=== PATIENT | female | born 1955 | race Caucasian/White ===

== ENCOUNTER 2019-03-03 05:13 | Day surgery (SDC) | payer BC ==
[~2019-03-03] VITALS: Ht 162.6 cm; Wt 66.7 kg
[~2019-03-03 05:13] MED LIST: AMOXICILLIN 50500 MG PO; ARTIFICIAL TEAR15 M9 OPHTHALMIC; ASPIR 8181 MG PO; AZULFIDINE500 MG PO; CENTRUM SILVER1 EAC4 PO; FLAX OIL1000 MG PO; FOLIC ACID 40400 MC1 PO; FOLIC ACID0.8 MG PO; FOSAMAX 70 MG T70 MG PO; GENTEAL SEVERE10 GM OPHTHALMIC; LORATIDINE 10 M10 M1 PO; METHOTREXATE 22.5 MG PO; PRAVACHOL20 MG PO; REMICADE 1100 MG/VIA IV; RESTASIS1 EACH OPHTHALMIC; SERTRALINE HCL100 MG PO; SYNTHROID100 MC1 PO; VITAMIN D31000 UNI2 PO; ZANTAC 150MG T150 MG PO
[2019-03-03 06:40] LABS: HEMATOCRIT 42.5 % (37.0-47.0); HEMOGLOBIN 14.6 gm/dL (12.0-15.0)
[2019-03-03 07:38] VITALS: BP 131/72
--- NOTE | 2019-03-03 08:01 | EKG ---
[address] [address] ELECTROCARDIOGRAM REPORT Name: NERIS HYMAN Room #: 150-2 [facility]#: [id number] ������������������ Admission: 03/03/19 ������������������ Attend Phys: Michael Oquendo, Discharge: ������������������ Date of : 57 Report #: [id number] ����������������������������������������������������������������� [id number] THIS REPORT FOR: //name// [facility] Test Date: 2019-03-03 Test Time: 06:26:10 Pat Name: NERIS HYMAN Department: Room: [facility] 2 Gender: F [employer] Manager: SB : 1955 Requested By: Michael Oquendo Order Number: [id number] MD: Santy Lawson Measurements Intervals Prospect Rate: 58 P: 50 DE: 151 QRS: 42 QRSD: 96 T: 49 QT: 453 QTc: 445 Interpretive Statements Sinus rhythm Low voltage, extremity leads Compared to ECG 02/15/2015 06:54:35 No significant changes Electronically Signed On 03-03-2019 8:01:24 CDT by Santy Lawson [email or web address] ��������������������������������������������� <ELECTRONICALLY SIGNED> ���������������������������������������� By: Santy Lawson MD ��������������������������������������������� 05/11/21 800 5 5 MD AMILCAR Marcum
--- NOTE | 2019-03-03 08:33 | H ---
[facility] [place] [address] HISTORY AND PHYSICAL Name: NERIS HYMAN Room #: 150-2 [facility]#: [id number] Admission: 03/03/19 ������������������ Attend Phys: Michael Oquendo, Discharge: ������������������ Date of : 57 Report #: [id number] THIS REPORT FOR: //name// CC: Michael Puentes DATE OF SURGERY: 03/03/2019. REASON FOR SURGERY: Postmenopausal bleeding with endometrial thickening. HISTORY OF PRESENT ILLNESS: This is a 63-year-old who was recently seen with postmenopausal bleeding. She did have a pelvic ultrasound performed with her primary care physician, Dr. Kiley Puentes. She had some bleeding in early February. The patient had had a previous history of postmenopausal bleeding and had a hysteroscopy and D and C. in 02/2015. At that time, her pathology was benign. She had a recent Pap smear that was normal. On exam, her cervix was found to be stenotic, but no active bleeding at this time. PAST HISTORY: She has never been . She had a previous right hip replacement. She has a history of rheumatoid arthritis and hypothyroidism. FAMILY HISTORY: Positive for heart disease and thyroid disorder. SOCIAL HISTORY: She is and retired and has never smoked. ALLERGIES: None. CURRENT MEDICATIONS: Have been wrrz-xhx-fbncqsw flaxseed oil and baby aspirin daily. She is on Remicade infusions. She is on loratadine 10 mg daily. She takes folic acid and vitamin D and a multivitamin. She is on Methotrexate 2.5 mg daily. She is on levothyroxine 100 mcg daily. She is on sertraline 100 mg daily. She has Restasis eyedrops. REVIEW OF SYSTEMS: She complains of the vaginal bleeding in early February. No recent bleeding. No fever or chills. No nausea, vomiting, no diarrhea, no dysuria. No real chest pain or shortness of breath. On recent ultrasound, her endometrium did measure 16 mm. PHYSICAL EXAMINATION: VITAL SIGNS: Her height is 6 feet 3 inches, with a weight of 148, BMI of 26, blood pressure is 124/80. LUNGS: Clear. CARDIOVASCULAR: She had a regular rate and rhythm. NECK: Revealed no thyroid nodules. No supraclavicular adenopathy. ABDOMEN: Soft, nontender, no masses, rebound or guarding. PELVIC: She has a stenotic cervix. No active bleeding. She again had a recent normal Pap smear. Bimanual was without masses or pain. [address] [address] HISTORY AND PHYSICAL Name: NERIS HYMAN Room #: [address] [place] [address] M..#: [id number] Admission: 03/03/19 ������������������ Attend Phys: Michael Oquendo, Discharge: ������������������ Date of : 57 Report #: [id number] IMPRESSION: Postmenopausal bleeding with endometrium on ultrasound measuring 16 mm. After discussing evaluation of endometrial biopsy or hysteroscopy, D and C, the patient would like to proceed with a hysteroscopy and D and C. The procedure, risks, recovery have been discussed with the patient. ��������������������������������������������� <ELECTRONICALLY SIGNED> ���������������������������������������� By: Michael Oquendo MD ��������������������������������������������� 03/03/19 0833 [id number] [id number] Michael Oquendo MD /nt
--- NOTE | 2019-03-03 18:00 | O ---
[facility] [place] [address] OPERATIVE REPORT Name: NERIS HYMAN Vadim Room #: DEP [facility]#: [id number] Admission: 03/03/19 ������������������ Attend Phys: Michael Oquendo, Discharge: 03/03/19 ������������������ Date of : 57 Report #: [id number] THIS REPORT FOR: //name// CC: Michael Oquendo Kiley Puentes DATE OF SERVICE: 03/03/2019 PREOPERATIVE DIAGNOSIS: Postmenopausal bleeding with evidence of endometrial thickening. POSTOPERATIVE DIAGNOSIS: Postmenopausal bleeding with evidence of endometrial thickening with also finding of an endometrial polyp. PROCEDURE: Hysteroscopy and D and C. SURGEON: Dr. Michael Oquendo. ANESTHESIA: General. COMPLICATIONS: None. DESCRIPTION OF THE OPERATION: The patient was taken to the operating room and given adequate anesthesia, and a timeout was performed. She had compression stockings applied. She was placed in the stirrups and she was prepped and draped. A weighted Chauhna retractor was placed posteriorly due to her narrowed vagina and the anterior lip of the cervix was visualized and grasped with a tenaculum. Cervix was quite stenotic. I was able to gently dilate her up to 4 mm. At that point, endocervical curetting was performed. Uterus sounded to 7 cm. The diagnostic hysteroscope was introduced and it showed evidence of a small endometrial polypoid lesion. No other lesions seen. Tubal ostia identified. Did attempt to use the MyoSure, but because of her very stenotic and small cervix, I was unable to dilate her to the point where the MyoSure scope could be introduced. Therefore, used polyp forceps to remove the polyp and endometrial curettings. I also used an endometrial Pipelle for further aspiration of tissue. All tissue was sent to pathology. There were no complications. The tenaculum was removed from cervix. There was a small bleeding and was treated with silver nitrate. The retractor was removed. The cervix was hemostatic. There were no complications. Sponge, needle and instrument count were correct. She was placed back into the supine position and taken to the recovery room in stable condition. ��������������������������������������������� <ELECTRONICALLY SIGNED> ���������������������������������������� By: Michael Oquendo MD ��������������������������������������������� 03/03/19 1800 0825 0844 Michael Oquendo MD /nt
--- NOTE | 2019-03-04 16:06 | PATH ---
[facility] [address] [place] [address] PATHOLOGY RPT PROCEDURE Name: BOOGIENERIS Fierro Room #: DEP [facility] M.R.#: [id number] ������������������ Admission: 03/03/19 ������������������ Date of : 57 Discharge: 03/03/19 Report #: [id number] Path Case #: [id number] [facility] Accession Number: [id number] . 01 Material submitted: . PART A: endocervix - ENDOCERVICAL CURETTINGS PART B: endometrium - ENDOMETRIUM CURETTING . 01 Clinical history: . Postmenopausal bleeding and endometrial thickening . 02 Diagnosis: A. Cervix, endocervical curettings: - Strips and fragments of benign endocervical as well as ectocervical epithelium with reactive changes. - No dysplasia present . B. Uterus, endometrial curettings: - Fragments of benign endometrial polyp without atypia or malignancy. - Fragments of inactive (atrophic) endometrium; negative for hyperplasia, atypia or malignancy. (IUV:sarika; 03/04/2019) . . QMS/03/04/2019 . 02 Electronically signed: . Argelia Mcbride MD, Pathologist NPI- [id number] . 01 Gross description: . A. Received in formalin labeled "Boogie, Neris, endocervical curetting," is a 1.9 x 0.5 x 0.1 cm aggregate of hemorrhagic mucoid material. The specimen is submitted entirely in cassette A1. . B. Received in formalin labeled "Hyman, Neris, endometrial curetting," is a 1.2 x 0.4 x 0.2 cm aggregate of pederson soft tissue fragments and hemorrhagic mucoid material. The specimen is submitted entirely in cassette B1. (DAC; 03/03/2019) XDC/XDC . 02 Pathologist provided ICD-10: N84.0, N85.8 . 02 CPT . 913754, 237162 [address] [address] PATHOLOGY RPT PROCEDURE Name: NERIS HYMAN Vadim Room #: DEP [facility]#: [id number] ������������������ Admission: 03/03/19 ������������������ Date of : 57 Discharge: 03/03/19 Report #: [id number] Path Case #: [id number] Specimen Comment: A courtesy copy of this report has been sent to Specimen Comment: [phone], . Specimen Comment: Report sent to / DR BRICEÑO Performed at: [address] [facility] [address], [place], [place] [id number] MD Bon Martin MD Phone: [phone] Performed at: [address] [facility] [address] [id number] MD Argelia Mcbride MD Phone: [phone]
== END 2019-03-03 09:31 | disposition home or self-care (01) ==
LOC: OR 05:13 → TBA 05:13 → OR 09:31
PROVIDERS: Obstetrics & Gynecology
DX: N84.0 Polyp of corpus uteri (principal); N95.0 Postmenopausal bleeding; R93.89 Abnormal findings on diagnostic imaging of other specified body structures; E03.9 Hypothyroidism, unspecified; M06.9 Rheumatoid arthritis, unspecified; E78.00 Pure hypercholesterolemia, unspecified; F32.9 Major depressive disorder, single episode, unspecified; Z96.641 Presence of right artificial hip joint; Z82.49 Family history of ischemic heart disease and other diseases of the circulatory system; Z98.890 Other specified postprocedural states; Z79.899 Other long term (current) drug therapy; Z79.82 Long term (current) use of aspirin
CPT/HCPCS: 50010; 50101; 54171; 54173; 57160; 62110; 62900; 70005